=== PATIENT | female | born 1940 | race Caucasian/White ===

== ENCOUNTER → 2017-04-15 | Outpatient (CLI) | payer MEDICARE, OTHER ==
--- NOTE | 2017-04-15 12:47 | CT ---
EXAMINATION TYPE: CT knee LT wo con DATE OF EXAM: 04/15/2017 COMPARISON: NONE HISTORY: Anterior Left sided knee pain post trauma CT DLP: 424 mGycm Automated exposure control for dose reduction was used. FINDINGS: There is chondrocalcinosis and narrowing of the joint space. No erosive changes. Osseous structures intact. No sizable joint effusion. Hypertrophic spurring involving the upper margin of patella. Suggestion of extrusion of the medial meniscus correlate for meniscal tear. IMPRESSION: OSTEOARTHRITIS WITH NO ACUTE FRACTURE.
== END | disposition home or self-care (01) ==
LOC: RADCTMAIN 12:07
PROVIDERS: ATTEND Family Medicine
DX: M17.12 Unilateral primary osteoarthritis, left knee (principal)